=== PATIENT | female | born 1960 | race African-American/Black ===

== ENCOUNTER 2022-12-05 09:33 | Emergency (ER) | payer MEDICAID, OTHER ==
[~2022-12-05] VITALS: Ht 162.6 cm; Wt 64.3 kg
[~2022-12-05 09:33] MED LIST: AMLO1TAB22
[2022-12-05 10:55] VITALS: BP 129/75; PULSE 80; RESP 18; TEMP 97.8; O2SAT 98
[2022-12-05] MEDS ORDERED: AZIT500T66 PO (10:55)
[2022-12-05] MEDS ORDERED: PROM1SOL4 PO (10:55)
== END 2022-12-05 11:01 | disposition home or self-care (01) ==
LOC: ER 09:33
DX: J03.90 Acute tonsillitis, unspecified (principal); J06.9 Acute upper respiratory infection, unspecified; I10 Essential (primary) hypertension; Z79.899 Other long term (current) drug therapy; Z90.49 Acquired absence of other specified parts of digestive tract